=== PATIENT | male | born 1970 | race American Indian/Alaskan Native ===

== ENCOUNTER 2019-03-02 02:25 | Emergency (ER) | payer OTHER ==
[2019-03-02 02:31] VITALS: BP 147/82
[2019-03-02] MEDS ORDERED: IBUPROFEN 800 MG TAB PO ONE (07:25)
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
== END 2019-03-02 08:38 | disposition home or self-care (01) ==
LOC: ED 02:25
DX: S46.911A Strain of unspecified muscle, fascia and tendon at shoulder and upper arm level, right arm, initial encounter (principal); S13.4XXA Sprain of ligaments of cervical spine, initial encounter; S39.012A Strain of muscle, fascia and tendon of lower back, initial encounter; F17.200 Nicotine dependence, unspecified, uncomplicated; Z79.899 Other long term (current) drug therapy; V89.2XXA Person injured in unspecified motor-vehicle accident, traffic, initial encounter; Y93.89 Activity, other specified; Y92.488 Other paved roadways as the place of occurrence of the external cause; Y99.8 Other external cause status
CPT/HCPCS: 72100; 99283